=== PATIENT | female | born 1970 | race Caucasian/White ===

== ENCOUNTER → 2016-03-29 | Outpatient (CLI) | payer BC ==
[~2016-03-29] MED LIST: AMLO-110 PO; BIOT1CAP8 PO; CHOL20007 PO; COEN1CAP32 PO; DXY100 PO; ELET40TA PO; HYDR-5688 PO; LACTTAB7 PO; LISI-461 PO; MAGN1CAP4 PO; METO25TA56 PO; NITR-5 PO; NORE1TAB90 PO; OMEG10007 PO; OMEP40CA41 PO; VRPSR180 PO
== END | disposition home or self-care (01) ==
LOC: C.LAB 14:36
PROVIDERS: ATTEND Nurse Practitioner Family
DX: N39.0 Urinary tract infection, site not specified (principal)

== ENCOUNTER → 2016-04-02 | Outpatient (CLI) | payer OTHER, BC ==
--- NOTE | 2016-04-02 15:54 | DIAGNOSTIC IMAGING REPORT ---
LEFT FOOT MIN 3 VIEWS ROUTINE CLINICAL HISTORY: Left foot pain and swelling TRAUMA COMPARISON: None. DISCUSSION: No fractures or dislocations are visualized. IMPRESSION: No fractures or dislocations are visualized. Electronically signed by: Eriberto Crum M.D. 04/02/2016 3:53 PM Dictated Date/Time: 04/02/2016 3:52 PM
== END | disposition home or self-care (01) ==
LOC: C.RAD1850 14:38
PROVIDERS: ATTEND Nurse Practitioner Family
DX: M79.672 Pain in left foot (principal); M79.89 Other specified soft tissue disorders; W19.XXXA Unspecified fall, initial encounter

== ENCOUNTER → 2016-04-05 | Outpatient (CLI) | payer BC ==
--- NOTE | 2016-04-05 16:13 | DIAGNOSTIC IMAGING REPORT ---
CHEST 2 VIEWS ROUTINE CLINICAL HISTORY: R05 cough COMPARISON STUDY: 02/01/2016 FINDINGS: The bones soft tissues and hemidiaphragms are normal. The cardiomediastinal silhouette is normal. The lungs are clear. The pulmonary vasculature is normal. IMPRESSION: Negative chest. Electronically signed by: Keith Hughes M.D. 04/05/2016 4:11 PM Dictated Date/Time: 04/05/2016 4:11 PM
== END | disposition home or self-care (01) ==
LOC: C.RAD 15:40
PROVIDERS: ATTEND Nurse Practitioner Family
DX: R05 Cough (principal)

== ENCOUNTER → 2016-04-19 | Outpatient (CLI) | payer BC ==
[2016-04-19 17:46] LABS: BASO % 0.4 %; BASO ABS # 0.04 K/uL (0-0.2); COMPLETE YES; EOS % 1.5 %; HEMATOCRIT 37.4 % (37-47); IG% 0.2 %; LYMPH % 30.7 %; LYMPH ABS # 2.89 K/uL (1.2-3.4); MEAN CELL VOLUME 93.7 fL (80-100); MEAN CORPUSCULAR HEMOGLOBIN 31.6 pg (25-34); MEAN CORPUSCULAR HGB CONC 33.7 g/dl (32-36); MEAN PLATELET VOLUME 9.8 fL (7.4-10.4); MONO % 6.8 %; NEUT % 60.4 %; PLATELET COUNT 321 K/uL (130-400); RED BLOOD COUNT 3.99 M/uL (4.2-5.4); WHITE BLOOD COUNT 9.42 K/uL (4.8-10.8)
[2016-04-19 18:11] LABS: ALT/SGPT 27 U/L (12-78); AST/SGOT 18 U/L (15-37); BLOOD UREA NITROGEN 12 mg/dl (7-18); BUN/CREATININE RATIO 11.6 (10-20); CALCIUM 8.8 mg/dl (8.5-10.1); CARBON DIOXIDE 24 mmol/L (21-32); CHLORIDE 109 mmol/L (98-107); GLUCOSE 86 mg/dl (70-99); POTASSIUM 3.9 mmol/L (3.5-5.1); SODIUM 143 mmol/L (136-145)
[2016-04-19 18:13] LABS: ALB/GLOB RATIO 0.9 (0.9-2); ALKALINE PHOSPHATASE 51 U/L (45-117)
== END | disposition home or self-care (01) ==
LOC: C.LAB 16:55
PROVIDERS: ATTEND Psychiatry & Neurology Neurology
DX: R51 Headache (principal)

== ENCOUNTER 2016-05-06 15:51 | Emergency (ER) | payer BC ==
[~2016-05-06] VITALS: Ht 162.6 cm; Wt 109.6 kg
[~2016-05-06 15:51] MED LIST changes: -AMLO-110 PO; -LACTTAB7 PO; -METO25TA56 PO; -NITR-5 PO
[2016-05-06 15:56] VITALS: TEMP 36.9; Ht 162.6 cm; Wt 109.6 kg
[2016-05-06] MEDS ORDERED: METO25TA56 PO (16:24)
--- NOTE | 2016-05-06 16:25 | DIAGNOSTIC IMAGING REPORT ---
CHEST ONE VIEW PORTABLE CLINICAL HISTORY: Evaluate Fever/Sepsis dyspnea COMPARISON STUDY: No previous studies for comparison. FINDINGS: The bones soft tissues and hemidiaphragms are normal. The cardiomediastinal silhouette is normal. The lungs are clear. The pulmonary vasculature is normal. IMPRESSION: Negative chest. Electronically signed by: Keith Hughes M.D. 05/06/2016 4:24 PM Dictated Date/Time: 05/06/2016 4:23 PM
[2016-05-06] MEDS ORDERED: NITR-5 PO (16:40)
[2016-05-06] MEDS ORDERED: LACTTAB7 PO (16:41)
[2016-05-06 16:59] LABS: BASO % 0.4 %; BASO ABS # 0.03 K/uL (0-0.2); COMPLETE YES; EOS % 1.2 %; HEMATOCRIT 40.6 % (37-47); IG% 0.3 %; LYMPH % 38.5 %; MEAN CELL VOLUME 91.9 fL (80-100); MEAN CORPUSCULAR HEMOGLOBIN 31.2 pg (25-34); MEAN PLATELET VOLUME 9.8 fL (7.4-10.4); MONO % 7.2 %; NEUT % 52.4 %; PLATELET COUNT 303 K/uL (130-400); RED BLOOD COUNT 4.42 M/uL (4.2-5.4); WHITE BLOOD COUNT 7.54 K/uL (4.8-10.8)
[2016-05-06 17:01] LABS: INR 1.1 (0.9-1.1); PROTHROMBIN TIME (PATIENT) 11.3 SECONDS (9.0-12.0)
[2016-05-06 17:16] LABS: ALT/SGPT 33 U/L (12-78); BLOOD UREA NITROGEN 8 mg/dl (7-18); BUN/CREATININE RATIO 8.4 (10-20); CALCIUM 8.8 mg/dl (8.5-10.1); CARBON DIOXIDE 25 mmol/L (21-32); CHLORIDE 107 mmol/L (98-107); CREATININE 0.95 mg/dl (0.60-1.20); GLUCOSE 75 mg/dl (70-99); POTASSIUM 3.7 mmol/L (3.5-5.1); SODIUM 142 mmol/L (136-145)
[2016-05-06 17:27] LABS: ALKALINE PHOSPHATASE 59 U/L (45-117); AST/SGOT 17 U/L (15-37); CKMB/CK RATIO 0.7 (0-3.0)
[2016-05-06] MEDS ORDERED: AMLO-110 PO (17:44)
--- NOTE | 2016-05-06 17:46 | EMERGENCY ROOM VISIT NOTE ---
History Report prepared by Adonay: Alissa Hidalgo Under the Supervision of: Dr. Leo Milton D.O. 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 The patient states today she has been experiencing arm pain, neck pain, and visual changes were she was seeing rings. She states her eyesight problems have resolved but she is still experiencing chest pain. She states that the last few days she has issues with her blood pressure and states she has not had a diastolic blood pressure under 100 mmHg. The patient states that she changed her blood pressure medication 3 weeks ago and has been monitoring it and it has caused it to be high recently. 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 The patient denies any sob or fevers but states she had a resolved headache a few days ago. 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 Review of Systems See HPI for pertinent positives & negatives. A total of 10 systems reviewed and were otherwise negative. Past Medical & Surgical Medical Problems: (1) Epilepsy (2) Hypothyroidism Nos (3) Personal History, Urinary (Tract) Infection Surgical Problems: (1) H/O tubal ligation Family History Cancer Diabetes mellitus Heart disease Hypertension Lung disease Seizures Social History Smoking Status: Never Smoker Alcohol Use: none Marital Status: Housing Status: lives with family Occupation Status: employed Current/Historical Medications Scheduled Amlodipine (Norvasc), 5 MG PO DAILY Biotin (Biotin), 1 CAP PO DAILY Cholecalciferol (Vitamin D3), 4,000 UNITS PO DAILY Coenzyme Q10 (Ubidecarenone) (Coq-10), 400 MG PO DAILY Fish Oil (Cascade-3), 1 CAP PO DAILY Lactobacillus (Acidophilus), 1 TAB PO DAILY Magnesium Oxide (Magnesium), 500 MG PO DAILY Metoprolol Tartrate (Lopressor) (Lopressor), 25 MG PO DAILY Nitrofurantoin Monohyd Macrocr (Macrobid), 100 MG PO DAILY Norethindrone Acetate (Norethindrone Acetate), 5 MG PO DAILY Omeprazole (Prilosec), 40 MG PO DAILY Scheduled PRN Eletriptan Hydrobromide (Relpax), 40 MG PO DAILY PRN for Headache Allergies Coded Allergies: Cephalexin (Verified Allergy, Severe, throat swelling, 01/28/16) Clindamycin (Verified Allergy, Severe, throat swelled shut, 01/28/16) Aspirin (Verified Allergy, Mild, HIVES, 02/01/16) PER PATIENT NO REACTION TO IBUPROFEN Penicillins (Verified Allergy, Mild, hives, 01/28/16) Aspartame (Verified Allergy, Unknown, HIVES, 01/31/16) Allergic to artificial sweeteners Carbamazepine (Verified Allergy, Unknown, NONE, 01/28/16) Ciprofloxacin (Verified Allergy, Unknown, ., 01/28/16) Flu Virus Vaccine (Verified Allergy, Unknown, passed out for 3 hrs, ) Phenytoin (Verified Allergy, Unknown, ?, 01/28/16) Saccharin (Verified Allergy, Unknown, HIVES, 01/31/16) Sulfa Antibiotics (Verified Allergy, Unknown, RASH, 01/29/16) Physical Exam Vital Signs Date Time Temp Pulse Resp B/P Pulse Ox O2 Delivery O2 Flow Rate FiO2 05/06/16 17:07 66 05/06/16 15:56 36.9 75 18 187/109 97 Room Air Physical Exam CONSTITUTIONAL/VITAL SIGNS: Reviewed / noted above. GENERAL: Non-toxic in appearance. INTEGUMENTARY: Warm, dry, and [place]. HEAD: Normocephalic. EYES: without scleral icterus or trauma. ENT/OROPHARYNX: clear and moist. LYMPHADENOPATHY/NECK: Is supple without lymphadenopathy or meningismus. RESPIRATORY: Lungs clear and equal. CARDIOVASCULAR: Regular rate and rhythm. GI/ABDOMEN: Soft and nontender. No organomegaly or pulsatile mass. No rebound or guarding. Normal bowel sounds. EXTREMITIES: Warm and well perfused. BACK: No CVA tenderness. NEUROLOGICAL: Intact without focal deficits. PSYCHIATRIC: normal affect. MUSCULOSKELETAL: Normally developed with good muscle tone. Medical Decision & Procedures ER Provider Diagnostic Interpretation: X ray results and stated below per my interpretation and radiology interpretation. CHEST ONE VIEW PORTABLE CLINICAL HISTORY: Evaluate Fever/Sepsis dyspnea COMPARISON STUDY: No previous studies for comparison. FINDINGS: The bones soft tissues and hemidiaphragms are normal. The cardiomediastinal silhouette is normal. The lungs are clear. The pulmonary vasculature is normal. IMPRESSION: Negative chest. Electronically signed by: Keith Hughes M.D. 05/06/2016 4:24 PM Dictated Date/Time: 05/06/2016 4:23 PM Laboratory Results 05/06/16 16:30 Red Blood Count 4.42, Mean Corpuscular Volume 91.9, Mean Corpuscular Hemoglobin 31.2, Mean Corpuscular Hemoglobin Concent 34.0, Mean Platelet Volume 9.8, Neutrophils (%) (Auto) 52.4, Lymphocytes (%) (Auto) 38.5, Monocytes (%) (Auto) 7.2, Eosinophils (%) (Auto) 1.2, Basophils (%) (Auto) 0.4, Neutrophils # (Auto) 3.96, Lymphocytes # (Auto) 2.90, Monocytes # (Auto) 0.54, Eosinophils # (Auto) 0.09, Basophils # (Auto) 0.03 05/06/16 16:30 Test 05/06/16 16:30 White Blood Count 7.54 K/uL (4.8-10.8) Red Blood Count 4.42 M/uL (4.2-5.4) Hemoglobin 13.8 g/dL (12.0-16.0) Hematocrit 40.6 % (37-47) Mean Corpuscular Volume 91.9 fL (80-100) Mean Corpuscular Hemoglobin 31.2 pg (25-34) Mean Corpuscular Hemoglobin Concent 34.0 g/dl (32-36) Platelet Count 303 K/uL (130-400) Mean Platelet Volume 9.8 fL (7.4-10.4) Neutrophils (%) (Auto) 52.4 % Lymphocytes (%) (Auto) 38.5 % Monocytes (%) (Auto) 7.2 % Eosinophils (%) (Auto) 1.2 % Basophils (%) (Auto) 0.4 % Neutrophils # (Auto) 3.96 K/uL (1.4-6.5) Lymphocytes # (Auto) 2.90 K/uL (1.2-3.4) Monocytes # (Auto) 0.54 K/uL (0.11-0.59) Eosinophils # (Auto) 0.09 K/uL (0-0.5) Basophils # (Auto) 0.03 K/uL (0-0.2) RDW Standard Deviation 43.4 fL (36.4-46.3) RDW Coefficient of Variation 12.9 % (11.5-14.5) Immature Granulocyte % (Auto) 0.3 % Immature Granulocyte # (Auto) 0.02 K/uL (0.00-0.02) Prothrombin Time 11.3 SECONDS (9.0-12.0) Prothromb Time International Ratio 1.1 (0.9-1.1) Activated Partial Thromboplast Time 24.9 SECONDS (21.0-31.0) Partial Thromboplastin Ratio 1.0 Anion Gap 10.0 mmol/L (3-11) Est Creatinine Clear Calc Drug Dose 90.5 ml/min Estimated GFR () 83.8 Estimated GFR (Non- 72.3 BUN/Creatinine Ratio 8.4 (10-20) Calcium Level 8.8 mg/dl (8.5-10.1) Total Bilirubin 0.3 mg/dl (0.2-1) Direct Bilirubin < 0.1 mg/dl (0-0.2) Aspartate Amino Transf (AST/SGOT) 17 U/L (15-37) Alanine Aminotransferase (ALT/SGPT) 33 U/L (12-78) Alkaline Phosphatase 59 U/L (45-117) Total Creatine Kinase 112 U/L (26-192) Creatine Kinase MB 0.8 ng/ml (0.5-3.6) Creatine Kinase MB Ratio 0.7 (0-3.0) Troponin I < 0.015 ng/ml (0-0.045) Total Protein 7.9 gm/dl (6.4-8.2) Albumin 3.9 gm/dl (3.4-5.0) Lipase 151 U/L (73-393) Thyroid Stimulating Hormone (TSH) 1.320 uIu/ml (0.300-4.500) Laboratory results as stated above per my review. ECG Indication: chest pain Rate (beats per minute): 71 Rhythm: normal sinus Findings: no acute ischemic change, no ectopy ED Course 1606: Previous medical records were reviewed. The patient was evaluated in room B7. A complete history and physical examination was performed. Her blood pressure was 167/119 mmHg during examination. 174: On reevaluation, the patient is hemodynamically stable. I discussed the results and findings with the patient. She verbalized agreement of the treatment plan. The patient was discharged home. Medical Decision the differential was considered includes acute myocardial infarction, acute coronary syndrome, myocarditis, pericarditis, pericardial effusions /tamponad, esophageal perforation, thoracic aortic dissection, pulmonary embolism, pneumonia, pneumothorax, pancreatitis, shingles, acute cholecystitis, perforated abdominal viscus. This is a 45-year-old female who presents to the ED with a chief complaint of chest pain and hypertension. The patient states that she had a blood pressure this morning of something over greater than 100 diastolic. She also had a little bit of chest pain for the past 4 hours as well as pain in her neck. She states that she had some rings in her vision earlier in the day but this has improved. The patient has been on a number of blood pressure medications in the past. She has been on verapamil but her blood pressure went too low. She has been on lisinopril but she developed a cough. She most recently has been on the beta dacia that she is currently on. Her physical exam was normal. Her vital signs reveal hypertension with a blood pressure 187/109. Last blood pressure was 164/107. Blood work reveals normal CBC. Normal TSH. Normal troponin. Chest x-ray was negative for acute disease. EKG shows a normal sinus rhythm without ectopy or acute injury. The patient was told the results the test. She is felt to be stable for discharge. After discussing this with the ED pharmacist, the patient will be started on amlodipine 5 mg daily. She will continue her metoprolol. Impression Primary Impression: Hypertension Scribe Attestation The scribe's documentation has been prepared under my direction and personally reviewed by me in its entirety. I confirm that the note above accurately reflects all work, treatment, procedures, and medical decision making performed by me. Departure Information Dispostion Home / Self-Care Prescriptions Amlodipine (Norvasc) 5 Mg Tab 5 MG PO DAILY, #30 TAB Prov: Leo Milton D.O. 05/06/16 Referrals Jose Luis Fraga D.O. (PCP) Forms HOME CARE DOCUMENTATION FORM, IMPORTANT VISIT INFORMATION Patient Instructions Hypertension Veto, My [facility] Additional Instructions Continue your metoprolol. Amlodipine 5 mg daily. See your doctor in 2-3 days for recheck. Follow-up with your doctor for further care and evaluation in 1-3 days. Return to the emergency department for worsening or new symptoms or any concerns. You have been examined and treated today on an emergency basis only. This is not a substitute for, or an effort to provide, complete comprehensive medical care. It is impossible to recognize and treat all injuries or illnesses in a single emergency department visit. It is therefore important that you follow up closely with your doctor. Call as soon as possible for an appointment.
[2016-05-06 17:54] VITALS: BP 164/107; PULSE 70; O2SAT 96
[2016-05-06] MEDS ORDERED: AMLODIPINE BESYLATE 5 MG TAB PO ONE (18:00)
== END 2016-05-06 18:09 | disposition home or self-care (01) ==
LOC: C.EDB 15:53
DX: I10 Essential (primary) hypertension (principal); E03.9 Hypothyroidism, unspecified; R51 Headache; M54.2 Cervicalgia; Z86.73 Personal history of transient ischemic attack (TIA), and cerebral infarction without residual deficits; Z79.899 Other long term (current) drug therapy

== ENCOUNTER → 2017-01-24 | Outpatient (CLI) | payer BC ==
[~2017-01-24] MED LIST changes: -DXY100 PO; -HYDR-5688 PO; +LACTTAB7 PO; -LISI-461 PO; +METO25TA56 PO; +NITR-5 PO; -VRPSR180 PO
--- NOTE | 2017-01-27 07:49 | MAMMOGRAPHY REPORT ---
BILATERAL DIGITAL SCREENING MAMMOGRAM TOMOSYNTHESIS WITH CAD: 01/24/2017 CLINICAL HISTORY: Routine screening. Patient has no complaints. TECHNIQUE: Breast tomosynthesis in addition to standard 2D mammography was performed. Current study was also evaluated with a Computer Aided Detection (CAD) system. COMPARISON: Comparison is made to exams dated: 11/13/2015 mammogram, 11/09/2014 mammogram, 09/27/2013 ma mmogram, 09/23/2012 mammogram, 08/15/2011 mammogram, and 02/04/2011 mammogram - [facility]. BREAST COMPOSITION: The tissue of both breasts is heterogeneously dense, which may obscure small mas ses. FINDINGS: There is a stable biopsy clip in the left breast. No new suspicious mass, architectural d istortion or cluster of microcalcifications is seen. IMPRESSION: ACR BI-RADS CATEGORY 1: NEGATIVE There is no mammographic evidence of malignancy. A 1 year screening mammogram is recommended. The pa tient will receive written notification of the results. Approximately 10% of breast cancers are not detected with mammography. A negative mammographic report should not delay biopsy if a clinically suggestive mass is present. Lakisha Saleh M.D. ay/:01/25/2017 08:37:15 Unhairing Inspector: Zoey GARCIA(R)(M), [facility] letter sent: Normal 1/2 BI-RADS Code: ACR BI-RADS Category 1: Negative
== END | disposition home or self-care (01) ==
LOC: C.MAMM 10:08
PROVIDERS: ATTEND Obstetrics & Gynecology
DX: Z12.31 Encounter for screening mammogram for malignant neoplasm of breast (principal)

== ENCOUNTER → 2017-07-12 | Outpatient (CLI) | payer BC | END | disposition home or self-care (01) | LOC: C.LAB 10:17 | PROVIDERS: ATTEND Internal Medicine | DX: E04.9 Nontoxic goiter, unspecified (principal) ==

== ENCOUNTER 2018-06-28 04:38 | Observation (INO) ==
[2018-06-28] MEDS ORDERED: fentaNYL citrate 100 MCG/2 ML VIAL IV ONE ×2 (04:53→06:14)
[2018-06-28] MEDS ORDERED: ONDANSETRON INJ 2 MG/ML 2 ML VIAL IV STA (04:53)
[2018-06-28 05:05] LABS: Basophils # (auto) 0.03 K/uL (0-0.2); Basophils % (auto) 0.4 %; Eosinophils # (auto) 0.15 K/uL (0-0.5); Eosinophils % (auto) 1.9 %; Hematocrit (blood only) 40.8 % (37-47); Immature Granulocytes # (auto) 0.02 K/uL (0.00-0.02); Immature Granulocytes % (auto) 0.3 %; Lymphocytes # (auto) 3.37 K/uL (1.2-3.4); Lymphocytes % (auto) 43.3 %; Mean Corpuscular Hgb Conc 34.3 g/dL (32-36); Mean Corpuscular Volume 95.3 fL (80-100); Mean Platelet Volume 9.7 fL (7.4-10.4); Monocytes # (auto) 0.76 K/uL (0.11-0.59); Monocytes % (auto) 9.8 %; Neutrophils # (auto) 3.45 K/uL (1.4-6.5); Neutrophils % (auto) 44.3 %; Platelet Count 265 K/uL (130-400); RDW Coefficient of Variation 12.8 % (11.5-14.5); RDW Standard Deviation 44.5 fL (36.4-46.3); Red Blood Count 4.28 M/uL (4.2-5.4); White Blood Count 7.78 K/uL (4.8-10.8)
[2018-06-28 05:20] LABS: Alanine Aminotransferase 29 U/L (12-78); Albumin Level 3.7 gm/dl (3.4-5.0); Aspartate Aminotransferase 25 U/L (15-37); BUN Creatinine Ratio 16.4 (10-20); Blood Urea Nitrogen 17 mg/dl (7-18); Calcium 8.9 mg/dl (8.5-10.1); Carbon Dioxide 28 mmol/L (21-32); Chloride 107 mmol/L (98-107); Creatinine Clr Calc Pharmacy 79.7 ml/min; Est GFR (African American) 72.7; Est GFR (Non-African American) 62.8; Glucose 85 mg/dl (70-99); Potassium 4.4 mmol/L (3.5-5.1); Sodium 138 mmol/L (136-145)
[2018-06-28 05:25] LABS: Albumin Globulin Ratio 0.9 (0.9-2); Alkaline Phosphatase 59 U/L (45-117); Bilirubin,Total 0.5 mg/dl (0.2-1); Total Protein 7.7 gm/dl (6.4-8.2); Troponin I < 0.015 ng/ml (0-0.045)
--- NOTE | 2018-06-28 06:13 | XRay Report ---
XR chest 1V portable HISTORY: 48 years-old Female Chest Pain acute atypical chest pain COMPARISON: Chest radiograph 05/06/2016 TECHNIQUE: Portable AP view of the chest FINDINGS: Cardiomediastinal and hilar silhouettes are within normal limits. There is no pneumothorax, pleural e ffusion, focal airspace consolidation or overt pulmonary edema. Degenerative changes of the shoulders . Bones of the chest appear grossly intact. IMPRESSION: No acute process. The above report was generated using voice recognition software. It may contain grammatical, syntax o r spelling errors. Electronically signed by: Ranjit Proctor M.D. 06/28/2018 6:12 AM
--- NOTE | 2018-06-28 08:14 | History & Physical Report ---
Date of Service June 28, 2018 Assessment & Plan (1) Substernal chest pain: - Admit to tele for observation for r/o - Trend cardiac biomarkers, initial set was negative - EKG reviewed as above -negative for acute ischemia -CXR reviewed and is negative - Check 2 D echo - If negative enzymes can consider a stress test tomorrow morning. - PT/OT consulted - Strong family hx is concerning for possible cardiac event - Consult [facility] as pt follows with Dr. Irene as outpatient a few years ago. (2) HTN (hypertension): - Cont antihypertensives including losartan 50 mg daily (3) Epilepsy: -History of such (4) Hx of completed stroke: -History of such in 1979 when age 10 and because 3 years of paralysis per patient report. 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 (5) History of paralysis: -As above (6) HLD (hyperlipidemia): -Continue CoQ10 (7) Bladder spasm: -Patient was recently started on oxybutynin 10 mg daily last , has been taking this. Patient follows with [facility] urology as outpatient. (8) DVT prophylaxis: -Suzanna Mcconnell subcu History of Present Illness Primary Care Provider: Jose Luis Fraga DO This is a 48-year-old female with PMHx of history of HTN, HLD, bladder spasm, epilepsy, stroke age 10 in 1979 causing paralysis for 3 years, with residual right-sided lip droop as well as deafness in the right ear,'s S/P cochlear impl ant who presents with acute onset at 0300 of crushing substernal chest pain. The patient noticed that she was extremely nauseous along with the pain and proceeded to go to the bathroom however could not vomit. She felt short of breath and was slightly dizzy at this point in time. She reports the pain has been continuous, not waxing & waning and feels heavy. Yesterday she was golfing however this is not out of the normal for her. She denies ever experiencing this type of chest pain before. Patient also notes that she recently started new medication of oxybutynin last for bladder spasms. FHX: The patient has strong family history for heart disease: Patient's mother at age 53 of a massive heart attack 15 years ago, twin sister had heart attack at age 40, older sister with history of HTN, father with history of HTN. SHx: Patient does not smoke nor drink alcohol. Allergies Allergy/AdvReac Type Severity Reaction Status Date / Time cephalexin Allergy Severe throat Verified 06/28/18 05:13 swelling clindamycin Allergy Severe throat Verified 06/28/18 05:13 swelled shut aspirin Allergy Mild HIVES Verified 06/28/18 05:13 Penicillins Allergy Mild hives Verified 06/28/18 05:13 aspartame Allergy Unknown HIVES Verified 06/28/18 05:13 carbamazepine Allergy Unknown NONE Verified 06/28/18 05:13 Cipro Allergy Unknown . Verified 01/28/16 19:38 ciprofloxacin Allergy Unknown . Verified 06/28/18 05:13 phenytoin Allergy Unknown ? Verified 06/28/18 05:13 saccharin Allergy Unknown HIVES Verified 06/28/18 05:13 Sulfa (Sulfonamide Allergy Unknown RASH Verified 06/28/18 05:13 Antibiotics) Flu Virus Vaccine Allergy Unknown passed out Uncoded 01/28/16 19:38 for 3 hrs Home Medications Home Medications Medication Instructions Recorded Confirmed Type [place]-3 1 cap PO DAILY 06/28/18 06/28/18 History albuterol sulfate 2 puff INHALATION QID PRN 06/28/18 06/28/18 History biotin 1,000 mcg PO DAILY 06/28/18 06/28/18 History cetirizine-pseudoephedrine 1 tab PO Q12H PRN 06/28/18 06/28/18 History [Zyrtec-D] cholecalciferol (vitamin D3) 5,000 unit PO DAILY 06/28/18 06/28/18 History [Vitamin D3] coQ10 (ubiquinol) 100 mg PO DIRECTED 06/28/18 06/28/18 History diclofenac sodium 1 applic TOPICAL DIRECTED 06/28/18 06/28/18 History eletriptan [Relpax] 40 mg PO DAILY 06/28/18 06/28/18 History ibuprofen 800 mg PO DIRECTED PRN 06/28/18 06/28/18 History losartan 50 mg PO DAILY 06/28/18 06/28/18 History magnesium oxide 500 mg PO DAILY 06/28/18 06/28/18 History nitrofurantoin monohyd/m-cryst 100 mg PO BID 06/28/18 06/28/18 History norethindrone acetate 5 mg PO DAILY 06/28/18 06/28/18 History omeprazole 40 mg PO DAILY 06/28/18 06/28/18 History Past Med/Surg History Medical History Bladder spasm HLD (hyperlipidemia) History of paralysis Hx of completed stroke Substernal chest pain (Acute) HTN (hypertension) Surgical History H/O tubal ligation (Resolved) Social History Preferred Language: Azeri Communication Ability: Effective Prepress Stripper Required: No Beliefs That Will Affect Care: None marital status: Current Living Situation: Spouse Other Information That Helps Us Care for You: No Feels Safe at Home: Yes Safety Concerns: Feels Safe At This Time Smoking Status: Never smoker Do You Dip or Chew Tobacco: No Second Hand Exposure: No Tobacco Cessation Education Requested by Patient: No Hx Alcohol Use: Yes Hx Substance Use: No Review of Systems Review of Systems: Constitutional: No fever, sweats or chills Eyes: No diplopia, no worsening or blurred vision ENT: normal hearing, no trouble swallowing Respiratory: No cough, sputum, as per HPI Cardiovascular: As per HPI Abdomen: No pain, +nausea as per HPI, no vomiting, diarrhea or constipation Musculoskeletal: No joint pain, calf pain, swelling Neurologic: No weakness, numbness/tingling, or balance problems Psychiatric: No anxiety or depression Skin: No rash or itch Physical Exam Physical Exam: General: awake, alert, no apparent distress Head: Normocephalic, atraumatic ENT: PERRL, EOMI, no pharyngeal exudate, mucous membranes moist Chest: Pain not reproducible upon palpation, clear to auscultation, on room air, no adventitious breath sounds Cardiac: Regular rate and rhythm, no murmur, no JVD, normal peripheral pulses, good capillary refill Abdominal: NABS x 4 quadrants, soft, nontender to palpation, no rebound, guarding or tenderness Extremities: Normal inspection, no peripheral edema or erythema, calfs nontender to palpation Psych: Normal mood and affect Neuro: AAO x 3, strength intact bilaterally and related 5/5, no motor deficits, speech is clear, no peripheral sensory deficits Results & Data Vital Signs (Past 12 Hours) Vital Signs Temp Pulse Pulse Resp BP BP Pulse Ox 06/28/18 07:36 89 16 128/92 97 06/28/18 06:17 77 18 134/81 97 06/28/18 05:47 59 L 18 127/85 93 06/28/18 04:44 36.4 C L 71 16 150/93 H 97 Diagnostic Findings XR chest 1V portable HISTORY: 48 years-old Female Chest Pain acute atypical chest pain COMPARISON: Chest radiograph 05/06/2016 TECHNIQUE: Portable AP view of the chest FINDINGS: Cardiomediastinal and hilar silhouettes are within normal limits. There is no pneumothorax, pleural effusion, focal airspace consolidation or overt pulmonary edema. Degenerative changes of the shoulders. Bones of the chest appear grossly intact. IMPRESSION: No acute process. ECG Additional Comments: 28-JUN-2018 04:44:19 [facility]-EDSTAT ROUTINE RETRIEVAL Poor data quality, interpretation may be adversely affected Normal sinus rhythm with sinus arrhythmia Normal ECG When compared with ECG of 06-MAY-2016 15:56, QT has lengthened 25mm/s 10mm/mV 150Hz 9.0.8 12SL 241 SARA: 15 Referred by: REFERRED SELF Unconfirmed Vent. rate 79 BPM NH interval 178 ms QRS duration 90 ms QT/QTc 408/467 ms P-R-T axes 50 75 61 Code Status & VTE Plan Code Status Full code Supervising Physician Co-Signing Physician Notes During my face to face encounter with patient, I performed a history and physical examination. This was done without the presence of the APC. I answered all of the patient questions and concerns during this encounter. I agree with above note. Patient is a 48 yo female with chest pain. Cardio does not feel patient warrents stress test. However, she is now complaining of left sided chest pain that radiates to the ba ck. Will order a CTA of chest. Will keep patient overnight for observation.
--- NOTE | 2018-06-28 08:29 | Emergency Department Note ---
Entered by Bunny Acosta acting as a scribe for Valery Melara DO History of Present Illness General Chief complaint: Chest Pain Stated complaint: chest pain Time Seen by Provider: 06/28/18 04:42 Source: patient and EMS Limitations: no limitations History of Present Illness Provider complaint: Chest Pain Onset (ago): hour(s) Location: chest Radiation: extremity (right shoulder/arm) Pain Consistency: + constant Maximum Pain Intensity: 5 Current Pain Intensity: 6 Quality: + other ("elephant sitting on my chest") Relieved By: + medication (Nitro) Associated symptoms: + diaphoresis and + shortness of breath Treatments prior to arrival: other (Nitro) The patient is a 48 year old female who presents to the Emergency Room with complaints of constant chest pain that woke her up from sleep shortly prior to arrival. The patient states that she was woken from sleep this morning by centralized chest pain. She describes the pain as a heaviness, or as "an el ephant sitting on my chest" per EMS. The patient adds that the pain does radiate into her right shoulder/arm and was a 10/10 in severity when she first woke up. She also complains of shortness of breath, nausea, and diaphoresis. The patient attempted to use the restroom, but laid on the floor after becoming nauseous. EMS administered 3 nitroglycerin tablets, which improved her pain to a 6/10 in severity. The patient states that the heaviness is present currently. She has had a stress test in the past secondary to hypertensive crisis, her hypertension is treated by Losartan. The patient has no personal cardiac history, but notes that her mother of ACS at 53 years of age. Home Medications Home Medications Medication Instructions Recorded Confirmed Type albuterol sulfate 2 puff INHALATION QID PRN 06/28/18 06/28/18 History biotin 1,000 mcg PO DAILY 06/28/18 06/28/18 History cetirizine-pseudoephedrine 1 tab PO Q12H PRN 06/28/18 06/28/18 History [Zyrtec-D] cholecalciferol (vitamin D3) 5,000 unit PO DAILY 06/28/18 06/28/18 History [Vitamin D3] coQ10 (ubiquinol) 100 mg PO DIRECTED 06/28/18 06/28/18 History diclofenac sodium 1 applic TOPICAL DIRECTED 06/28/18 06/28/18 History eletriptan [Relpax] 40 mg PO DAILY 06/28/18 06/28/18 History ibuprofen 800 mg PO DIRECTED PRN 06/28/18 06/28/18 History losartan 50 mg PO DAILY 06/28/18 06/28/18 History magnesium oxide 500 mg PO DAILY 06/28/18 06/28/18 History nitrofurantoin monohyd/m-cryst 100 mg PO BID 06/28/18 06/28/18 History norethindrone acetate 5 mg PO DAILY 06/28/18 06/28/18 History omega 8-ypc-mxo-fish oil [[place]-3] 1 cap PO DAILY 06/28/18 06/28/18 History omeprazole 40 mg PO DAILY 06/28/18 06/28/18 History oxybutynin chloride 10 mg PO DAILY 06/28/18 06/28/18 History Allergies Allergy/AdvReac Type Severity Reaction Status Date / Time cephalexin Allergy Severe throat Verified 06/28/18 05:13 swelling clindamycin Allergy Severe throat Verified 06/28/18 05:13 swelled shut aspirin Allergy Mild HIVES Verified 06/28/18 05:13 Penicillins Allergy Mild hives Verified 06/28/18 05:13 aspartame Allergy Unknown HIVES Verified 06/28/18 05:13 carbamazepine Allergy Unknown NONE Verified 06/28/18 05:13 Cipro Allergy Unknown . Verified 01/28/16 19:38 ciprofloxacin Allergy Unknown . Verified 06/28/18 05:13 phenytoin Allergy Unknown ? Verified 06/28/18 05:13 saccharin Allergy Unknown HIVES Verified 06/28/18 05:13 Sulfa (Sulfonamide Allergy Unknown RASH Verified 06/28/18 05:13 Antibiotics) Flu Virus Vaccine Allergy Unknown passed out Uncoded 01/28/16 19:38 for 3 hrs Past Med/Surg History Medical History Bladder spasm HLD (hyperlipidemia) History of paralysis Hx of completed stroke Substernal chest pain (Acute) HTN (hypertension) Surgical History H/O tubal ligation (Resolved) Social History Preferred Language: Romanian Communication Ability: Effective [employer] Required: No Beliefs That Will Affect Care: None marital status: Current Living Situation: Spouse Other Information That Helps Us Care for You: No Feels Safe at Home: Yes Safety Concerns: Feels Safe At This Time Smoking Status: Never smoker Do You Dip or Chew Tobacco: No Second Hand Exposure: No Tobacco Cessation Education Requested by Patient: No Hx Alcohol Use: Yes Hx Substance Use: No Review of Systems See HPI for pertinent positives & negatives. and A total of 10 systems reviewed and were otherwise negative Physical Exam Vital Signs Vital Signs - 24 hr 06/28/18 04:44 06/28/18 05:47 06/28/18 06:17 Temperature 36.4 C L Temperature Source Oral Sepsis Action Taken by Nursing No Action Required Pulse Rate 71 Pulse Rate [Finger] 59 L 77 Respiratory Rate 16 18 18 Respiratory Effort / Characteristics Non-Labored Spontaneous Respiratory Depth Normal Blood Pressure 150/93 H Blood Pressure [Right Arm] 127/85 134/81 Blood Pressure Mean 112 Blood Pressure Mean [Right Arm] 99 98 Blood Pressure Position [Right Arm] Pulse Oximetry 97 93 97 Oxygen Delivery Method Room Air Room Air Room Air 06/28/18 07:36 06/28/18 08:50 06/28/18 09:28 Temperature Temperature Source Sepsis Action Taken by Nursing Pulse Rate 77 Pulse Rate [Finger] 89 82 Respiratory Rate 16 18 16 Respiratory Effort / Characteristics Respiratory Depth Blood Pressure 146/89 H Blood Pressure [Right Arm] 128/92 160/77 H Blood Pressure Mean Blood Pressure Mean [Right Arm] 104 104 Blood Pressure Position [Right Arm] Pulse Oximetry 97 97 96 Oxygen Delivery Method Room Air Room Air Room Air 06/28/18 10:15 06/28/18 10:21 06/28/18 15:46 Temperature 37 C 37.1 C Temperature Source Oral Oral Sepsis Action Taken by Nursing Pulse Rate 61 Pulse Rate [Finger] 64 70 Respiratory Rate 16 20 Respiratory Effort / Characteristics Respiratory Depth Blood Pressure Blood Pressure [Right Arm] 130/83 135/84 Blood Pressure Mean Blood Pressure Mean [Right Arm] 98 101 Blood Pressure Position [Right Arm] Lying Lying Pulse Oximetry 97 97 Oxygen Delivery Method Room Air Room Air 06/28/18 15:47 06/28/18 17:40 06/28/18 17:46 Temperature Temperature Source Sepsis Action Taken by Nursing Pulse Rate 66 Pulse Rate [Finger] 79 89 Respiratory Rate Respiratory Effort / Characteristics Respiratory Depth Blood Pressure Blood Pressure [Right Arm] 135/82 142/75 H Blood Pressure Mean Blood Pressure Mean [Right Arm] 99 97 Blood Pressure Position [Right Arm] Pulse Oximetry Oxygen Delivery Method 06/28/18 18:00 06/28/18 19:42 Temperature 36.9 C Temperature Source Oral Sepsis Action Taken by Nursing Pulse Rate Pulse Rate [Finger] 86 74 Respiratory Rate 18 Respiratory Effort / Characteristics Respiratory Depth Normal Blood Pressure Blood Pressure [Right Arm] 131/84 130/81 Blood Pressure Mean Blood Pressure Mean [Right Arm] 99 97 Blood Pressure Position [Right Arm] Sitting Pulse Oximetry 97 98 Oxygen Delivery Method Room Air Room Air HEENT: Head - normocephalic and atraumatic Pupils are equal, round, and reactive to light. Extraocular eye muscles are intact, and sclera are anicteric. Nose - moist nasal mucosa without discharge. Mouth - moist buccal mucosa. Oropharynx is nonerythematous and there is no tonsillar exudate or edema noted. Neck: Supple; no JVD, nuchal rigidity, cervical lymphadenopathy, or auscultated bruits. Heart: Regular rate and rhythm. There is a normal S1 and S2 with no murmurs, clicks, or gallops appreciated. Lungs: Clear to auscultation bilaterally with no wheezes, rales, or rhonchi. Abdomen: Soft, completely nontender, nondistended, with good bowel sounds. There are no palpable pulsatile masses or hepatosplenomegaly. There is no guarding, rigidity, or rebound noted. Extremities: No evidence of cyanosis, clubbing, or edema. There are easily palpable peripheral pulses. Skin: warm and dry with good turgor and no rashes. Neuro: The patient has facial droop which is chronic for her. Neurological exam was otherwise nonfocal. Course 0046: The patient was evaluated in room B9, and a complete history and physical examination were performed. Above. A twelve-lead EKG was obtained as described above. She was observed on the registered nurse cardiac and pulse oximeter. She had a portable chest x-ray as described above. 0501: Patient given Fentanyl Citrate (Fentanyl Citrate) 100 mcg IV, Ondansetron HCl (Zofran) 4 mg IV 0606: I updated the patient. She states that she had complete relief of her pain with Fentanyl. The pain is coming back now. Vitals are stable, I will order another dosage of Fentanyl 0618: Patient given Fentanyl Citrate (Fentanyl Citrate) 50 mcg IV 0649: I updated the patient. 0734: I reviewed the patient's case with Dr. Julianne West Hospitalist. He will evaluate the patient for further management. Administered Medications Acetaminophen (Tylenol) 650 mg PO Q4H PRN PRN Reason: Moderate Pain Stop: 07/28/18 10:12 Last Admin: 06/28/18 12:26 Dose: 650 mg Documented by: [id number] Enoxaparin Sodium (Lovenox) 40 mg SQ Q24H SANIYA Stop: 07/28/18 13:59 Last Admin: 06/28/18 13:37 Dose: 40 mg Documented by: [id number] Ioversol (Optiray 320 125ml) 119 ml IV ONCE PRN PRN Reason: Interaction Checking Stop: 07/02/18 18:35 Last Admin: 06/28/18 18:36 Dose: 119 ml Documented by: [id number] Losartan Potassium (Cozaar) 50 mg PO DAILY SANIYA Stop: 07/28/18 10:12 Last Admin: 06/28/18 12:20 Dose: 50 mg Documented by: [id number] Magnesium Oxide (Mag-Ox) 400 mg PO DAILY SANIYA Stop: 07/28/18 10:12 Last Admin: 06/28/18 12:21 Dose: 400 mg Documented by: [id number] Miscellaneous (Order Awaiting Action) 1 ea N/A QS SANIYA Stop: 07/28/18 15:59 Last Admin: 06/28/18 15:44 Dose: Not Given Documented by: [id number] Miscellaneous (Order Awaiting Action) 1 ea N/A QS SANIYA Stop: 07/28/18 15:59 Last Admin: 06/28/18 15:44 Dose: Not Given Documented by: [id number] Morphine Sulfate (Morphine Sulfate) 1 mg IV Q4H PRN PRN Reason: Pain Stop: 07/12/18 10:12 Last Admin: 06/28/18 17:50 Dose: 1 mg Documented by: [id number] Nitroglycerin (Nitrostat) 0.4 mg SL PRN PRN PRN Reason: Chest Pain Stop: 07/28/18 10:12 Last Admin: 06/28/18 17:42 Dose: 0.4 mg Documented by: [id number] Norethindrone (Aygestin) 5 mg PO DAILY SANIYA Stop: 07/28/18 10:12 Last Admin: 06/28/18 12:20 Dose: Not Given Documented by: [id number] Oxybutynin Chloride (Ditropan Xl) 10 mg PO DAILY SANIYA Stop: 07/28/18 10:12 Last Admin: 06/28/18 12:20 Dose: 10 mg Documented by: [id number] Pantoprazole Sodium (Protonix) 40 mg PO DAILY SANIYA Stop: 07/28/18 10:44 Last Admin: 06/28/18 12:22 Dose: 40 mg Documented by: [id number] Vitamin D (Vitamin D3) 5,000 units PO DAILY SANIYA Stop: 07/28/18 10:12 Last Admin: 06/28/18 12:22 Dose: 5,000 units Documented by: [id number] Discontinued Medications Fentanyl Citrate (Fentanyl Citrate) 100 mcg IV NOW ONE Stop: 06/28/18 04:54 Last Admin: 06/28/18 05:01 Dose: 100 mcg Documented by: [id number] Fentanyl Citrate (Fentanyl Citrate) 50 mcg IV NOW ONE Stop: 06/28/18 06:15 Last Admin: 06/28/18 06:18 Dose: 50 mcg Documented by: [id number] Ondansetron HCl (Zofran) 4 mg IV NOW STA Stop: 06/28/18 04:54 Last Admin: 06/28/18 05:01 Dose: 4 mg Documented by: [id number] Medical Decision Making Differential Diagnosis Differential Diagnosis includes: Acute coronary syndrome, GERD, medication side effects, and aortic dissection. Medical Records Attestation: I reviewed the patient's medical records. Home Medications Current Medication List: was personally reviewed by me Laboratory Data Attestation: I reviewed the patient's lab results. Result diagrams: 06/28/18 04:54 06/28/18 04:54 Lab Results 06/28/18 06/28/18 06/28/18 Range/Units 04:54 04:54 10:49 WBC 7.78 (4.8-10.8) K/uL RBC 4.28 (4.2-5.4) M/uL Hgb 14.0 (12.0-16.0) g/dL Hct 40.8 (37-47) % MCV 95.3 (80-100) fL MCH 32.7 (25-34) pg MCHC 34.3 (32-36) g/dL RDW Std Deviation 44.5 (36.4-46.3) fL RDW Coeff of Arielle 12.8 (11.5-14.5) % Plt Count 265 (130-400) K/uL MPV 9.7 (7.4-10.4) fL Immature Gran % (Auto) 0.3 % Neut % (Auto) 44.3 % Lymph % (Auto) 43.3 % [place] % (Auto) 9.8 % Eos % (Auto) 1.9 % Baso % (Auto) 0.4 % Immature Gran # (Auto) 0.02 (0.00-0.02) K/uL Neut # (Auto) 3.45 (1.4-6.5) K/uL Lymph # (Auto) 3.37 (1.2-3.4) K/uL [place] # (Auto) 0.76 H (0.11-0.59) K/uL Eos # (Auto) 0.15 (0-0.5) K/uL Baso # (Auto) 0.03 (0-0.2) K/uL PT (9.0-12.0) Seconds INR (0.9-1.1) Sodium 138 (136-145) mmol/L Potassium 4.4 (3.5-5.1) mmol/L Chloride 107 (98-107) mmol/L Carbon Dioxide 28 (21-32) mmol/L Anion Gap 3.0 (3-11) BUN 17 (7-18) mg/dl Creatinine 1.05 (0.6-1.2) mg/dl Est Cr Clr Drug Dosing 79.7 ml/min Est GFR ( Amer) 72.7 Est GFR (Non-Af Amer) 62.8 BUN/Creatinine Ratio 16.4 (10-20) Glucose 85 (70-99) mg/dl Calcium 8.9 (8.5-10.1) mg/dl Total Bilirubin 0.5 (0.2-1) mg/dl AST 25 (15-37) U/L ALT 29 (12-78) U/L Alkaline Phosphatase 59 (45-117) U/L Troponin I < 0.015 < 0.015 (0-0.045) ng/ml Total Protein 7.7 (6.4-8.2) gm/dl Albumin 3.7 (3.4-5.0) gm/dl Globulin 4.0 (2.5-4.0) gm/dl Albumin/Globulin Ratio 0.9 (0.9-2) Lipase 113 (73-393) U/L 06/28/18 06/28/18 Range/Units 10:55 18:52 WBC (4.8-10.8) K/uL RBC (4.2-5.4) M/uL Hgb (12.0-16.0) g/dL Hct (37-47) % MCV (80-100) fL MCH (25-34) pg MCHC (32-36) g/dL RDW Std Deviation (36.4-46.3) fL RDW Coeff of Arielle (11.5-14.5) % Plt Count (130-400) K/uL MPV (7.4-10.4) fL Immature Gran % (Auto) % Neut % (Auto) % Lymph % (Auto) % [place] % (Auto) % Eos % (Auto) % Baso % (Auto) % Immature Gran # (Auto) (0.00-0.02) K/uL Neut # (Auto) (1.4-6.5) K/uL Lymph # (Auto) (1.2-3.4) K/uL [place] # (Auto) (0.11-0.59) K/uL Eos # (Auto) (0-0.5) K/uL Baso # (Auto) (0-0.2) K/uL PT 10.9 (9.0-12.0) Seconds INR 1.1 (0.9-1.1) Sodium (136-145) mmol/L Potassium (3.5-5.1) mmol/L Chloride (98-107) mmol/L Carbon Dioxide (21-32) mmol/L Anion Gap (3-11) BUN (7-18) mg/dl Creatinine (0.6-1.2) mg/dl Est Cr Clr Drug Dosing ml/min Est GFR ( Amer) Est GFR (Non-Af Amer) BUN/Creatinine Ratio (10-20) Glucose (70-99) mg/dl Calcium (8.5-10.1) mg/dl Total Bilirubin (0.2-1) mg/dl AST (15-37) U/L ALT (12-78) U/L Alkaline Phosphatase (45-117) U/L Troponin I < 0.015 (0-0.045) ng/ml Total Protein (6.4-8.2) gm/dl Albumin (3.4-5.0) gm/dl Globulin (2.5-4.0) gm/dl Albumin/Globulin Ratio (0.9-2) Lipase (73-393) U/L Imaging Data Radiologist's Impression: XR chest 1V portable HISTORY: 48 years-old Female Chest Pain acute atypical chest pain COMPARISON: Chest radiograph 05/06/2016 TECHNIQUE: Portable AP view of the chest FINDINGS: Cardiomediastinal and hilar silhouettes are within normal limits. There is no pneumothorax, pleural effusion, focal airspace consolidation or overt pulmonary edema. Degenerative changes of the shoulders. Bones of the chest appear grossly intact. IMPRESSION: No acute process. The above report was generated using voice recognition software. It may contain grammatical, syntax or spelling errors. Electronically signed by: Ranjit Proctor M.D. 06/28/2018 6:12 AM ECG Data Attestation: I personally reviewed and interpreted this ECG as follows: Indication: chest pain Rate (beats per minute): 79 Rhythm: normal sinus Findings: no acute ischemic change and no ectopy Blood Pressure Blood Pressure Findings: Elevated blood pressure Blood Pressure Disposition: elevated BP felt to be situational MDM Narrative The patient is a 48 year old female who presents to the ED for chest pain. Differential diagnosis includes acute coronary syndrome, GERD, medication side effects, and aortic dissection. The patient awoke from sleep with significant chest pressure and heaviness along with nausea and shortness of breath. The patient has a very strong family history of heart disease. The patient's mother at age 53 suddenly from an acute NM. The patient has undergone cardiac stress testing but this was done approximately 3 years ago. At this time, the patient has a normal-appearing EKG and a negative troponin. However I remain concerned about her persistent discomfort in conjunction with her family history. I discussed the case with the [facility] Hospitalist group and they will evaluate for further management. Impression & Plan Substernal chest pain Discharge Plan Visit Data *Final* Discharge Date/Time: 06/28/18 09:28 Chief Complaint: Chest Pain Stated Complaint: chest pain ED Provider: Valery Melara Discharge Problem: Substernal chest pain Patient Disposition: Admitted As Inpatient Discharge Instructions Interventions: ED Discharge Assessment Last Done: 06/28/18 09:28 The caitlinibe's documentation has been prepared under my direction and personally reviewed by me in its entirety. I confirm that the note above accurately reflects all work, treatment, procedures, and medical decision making performed by me.
[2018-06-28] MEDS ORDERED: NON-FORMULARY MEDICATION (Biotin 1,000 MCG) PO SCH (10:13)
[2018-06-28] MEDS ORDERED: MoRPHine SULFATE 2 MG/ML CARP IV PRN (10:13)
[2018-06-28] MEDS ORDERED: NITROGLYCERIN SL 0.4 MG/TAB TAB SL PRN (10:13)
[2018-06-28] MEDS ORDERED: ONDANSETRON INJ 2 MG/ML 2 ML VIAL IV PRN (10:13)
[2018-06-28] MEDS ORDERED: NON-FORMULARY MEDICATION (Coq10 (Ubiquinol) 100 MG) PO SCH (10:13)
[2018-06-28 11:15] LABS: INR 1.1 (0.9-1.1); Prothrombin Time 10.9 Seconds (9.0-12.0)
[2018-06-28] MEDS: LOSARTAN POTASSIUM 50 MG TAB PO SCH (12:20)
[2018-06-28] MEDS: NORETHINDRONE 5 MG TAB PO SCH (12:20)
[2018-06-28] MEDS: OXYBUTYNIN CHLORIDE XL 5 MG TABCR PO SCH (12:20)
[2018-06-28] MEDS: MAGNESIUM OXIDE 400 MG TAB PO SCH (12:21)
[2018-06-28] MEDS: CHOLECALCIFEROL 1,000 UNITS TAB PO SCH (12:22)
[2018-06-28] MEDS: PANTOprazole 40 MG TAB PO SCH (12:22)
[2018-06-28] MEDS: ACETAMINOPHEN 325 MG TAB PO PRN (12:26)
[2018-06-28] MEDS: ENOXAPARIN INJ 40 MG/0.4 ML SYR SQ SCH (13:37)
[2018-06-28] MEDS ORDERED: OPTIRAY 320 125ml IV PRN (18:36)
--- NOTE | 2018-06-28 18:57 | CT Scan Report ---
CT angio chest dissec wo/w con HISTORY: 48 years-old Female chest pain/ ruling out aortic dissection acute sharp chest pain with co ncern for aortic dissection COMPARISON: CTA chest 01/30/2016 TECHNIQUE: CTA of the chest was obtained both with and without the use of 119 mL Optiray 320 IV contr ast. 3-D coronal and sagittal MIPS were obtained from the axial data set and were submitted for revie w. All measurements were obtained according to NASCET criteria. A dose lowering technique was used co nsistent with the principals júnior VEGA. FINDINGS: CTA: The noncontrast scan demonstrates no intramural hematoma or coronary arterial calcifications. The hea rt is normal in size. No pericardial effusion. The thoracic aorta is normal in both course and calibe r without dissection. There is a 4 mm saccular outpouching noted about the medial aspect of the aorti c isthmus on image 128 series 7 which in retrospect appears unchanged. No large thoracic aortic aneur ysm. There is patency of the imaged great vessels. The pulmonary arterial tree is opacified to level the subsegmental branches and demonstrates no focal filling defects to suggest pulmonary thromboembol ic disease. CT CHEST: Heterogeneously enlarged thyroid. No adenopathy by CT size criteria. There is no pneumothorax or pleural effusion. Dependent right basilar groundglass and linear consolid ative opacities suggest atelectasis with areas of mosaic attenuation suggestive of air trapping. Mild bilateral bronchial wall thickening. There are no suspicious pulmonary nodules or masses identified. Central airways appear patent. No acute process of the imaged upper abdomen. Cholecystectomy with likely postoperative biliary ducta l dilation. Breast parenchyma and soft tissues appear unremarkable. Bones appear to be intact. Remote postoperative changes of the distal left clavicle. IMPRESSION: 1. No thoracic aortic dissection or large aneurysm. There is a 4 mm saccular outpouching redemonstrat ed along the medial aspect of the aortic isthmus which is unchanged from 2016. 2. No evidence of pulmonary thromboembolic disease. 3. Mild bilateral bronchial wall thickening suggests bronchitis or reactive airway disease. 4. Bibasilar opacities suggest atelectasis with areas of mosaic attenuation suggestive of air trappin g. 5. Cholecystectomy. The above report was generated using voice recognition software. It may contain grammatical, syntax o r spelling errors. Electronically signed by: Ranjit Proctor M.D. 06/28/2018 6:56 PM
--- NOTE | 2018-06-28 21:19 | Consultation Report ---
DATE OF CONSULTATION: 06/28/2018 REQUESTING: Katlin Stafford MD HEAD TRIMMER: Chandu Irene D.O., [facility]. REASON FOR CONSULTATION: Chest discomfort. Dear Dr. Stafford: It was a pleasure to see Ata Dumont today in consultation with regards to her chest discomfort that awoke her from sleep. She notes in the middle of the night she woke up, she had what she describes as pressure and heaviness in the lower portion of her chest, there was no radiation to her neck, jaw, back or arm. She got up, she did not quite feel well. She went to the bathroom and sat on the toilet and while sitting there, she started to have some tunnel vision and felt lightheaded and dizzy. She laid down on the floor. She was a little nauseous. She was very sweaty at that point and sounding like she had to vasovagal episode. In the days leading up to today's admission, she has been doing well. She notes she exercises every morning 45 minutes on a StairMaster and denies any chest pain or chest pressure with that. She has noted some right arm discomfort which she describes more as pins and needles in her right arm with exercise. She walked 18,000 steps last weekend and pulled her golf bag while golfing and had no difficulty with that. She denies any further lightheadedness or dizziness. She did get nitroglycerin before the Emergency Room with a mild improvement in her symptoms. Her pain currently is 6/10. It is not worse with a deep breath. It is not worse lying flat or better sitting up. She denies any recent fevers or chills or upper respiratory tract infection, although she did have an episode of URI 3 weeks ago. She has chronic mild lower extremity edema, worse at the end of the day, better in the morning. She notes occasional rare palpitations but denies any extended episodes of her heart racing. Her appetite is stable. Her weight is stable. She denies any bleeding, bruising, dark stools, black stools, fevers, chills, or sweats. Rest of the review of system is otherwise negative. PAST MEDICAL HISTORY: 1. Hypertension. 2. Epilepsy. 3. 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 5. Hyperlipidemia. 6. Bladder spasm, recently started on oxybutynin on . SOCIAL HISTORY: She denies any alcohol or tobacco. 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 FAMILY HISTORY: Mom at 53 of a heart attack. She has a twin sister who had a heart attack at age of 40 who is still living. She has an older sister with hypertension and a father with hypertension. ALLERGIES: CEPHALEXIN, CLINDAMYCIN, ASPIRIN, PENICILLIN, ASPARTAME, ____ CIPRO, DILANTIN, SACCHARIN AND SULFA. PHYSICAL EXAMINATION: GENERAL: She is awake, alert, oriented x3. She is in no acute distress. She looks her stated age. VITAL SIGNS: Her heart rate 61, blood pressure 130/83, respirations 16, sat 97%. HEENT: 2+ carotid upstrokes. Normal carotid bruits. Jugular venous pressure appeared normal. Sclerae are anicteric. Her hearing is normal. LUNGS: Clear to auscultation bilaterally. No rales, rhonchi or wheezing. HEART: Regular rate and rhythm. No appreciable murmurs, rubs or gallops. ABDOMEN: Soft, nontender, nondistended. Positive bowel sounds. EXTREMITIES: No clubbing, cyanosis. She has trace to mild bilateral lower extremity edema. PSYCHIATRIC: Affect appeared appropriate. NEUROLOGIC: She is awake, alert and oriented x3. DIAGNOSTIC STUDIES: EKG, sinus rhythm with sinus arrhythmia, right-sided IVCD. Normal ECG. Troponins are negative x3. The rest of her laboratory studies are negative. Her chest x-ray was normal. IMPRESSIONS: 1. Chest discomfort with a normal EKG, negative troponins and a normal echocardiogram without evidence of regional wall motion abnormalities and normal biventricular size and function. 2. Hypertension, well controlled. 3. Recent use of oxybutynin. As I discussed, this does not sound like pericarditis. It does not sound like she had a pulmonary embolism. It is not worse with a deep breath. It is not worse lying flat. There is no evidence of pericardial effusion. There is nothing to suggest aortic dissection as she denies a ripping or tearing discomfort. The only oddity is in the right arm and hand symptoms, although if you look up oxybutynin it potentially can cause this and given her previous significant intolerances, I wonder if the oxybutynin is not causing her symptoms. I would repeat her next troponin in the next couple of hours. If it is negative, it is reassuring that this is not an acute coronary syndrome. At that point options are stop her oxybutynin and see if her symptoms improve. It does not sound like reflux disease either. If her symptoms do not improve as an outpatient then I would recommend stress testing. She did have a stress echo in 2017 in our office and there was no evidence of ischemia at a heart rate of 78% of maximum predicted for her age. This will be discussed with the hospitalist service. Thank you for allowing us to participate in her care.
[2018-06-29 06:48] LABS: Albumin Level 3.2 gm/dl (3.4-5.0); BUN Creatinine Ratio 17.5 (10-20); Calcium 8.5 mg/dl (8.5-10.1); Creatinine Clr Calc Pharmacy 99.9 ml/min; Est GFR (African American) 96.6; Est GFR (Non-African American) 83.4; Potassium 4.1 mmol/L (3.5-5.1)
[2018-06-29 06:51] LABS: Albumin Globulin Ratio 0.8 (0.9-2); Bilirubin,Total 0.6 mg/dl (0.2-1); Globulin 3.9 gm/dl (2.5-4.0); Total Protein 7.1 gm/dl (6.4-8.2)
[2018-06-29 06:53] LABS: Chol HDL Ratio 2; Cholesterol 141 mg/dl (0-200); HDL Cholesterol 58 mg/dl; LDL Cholesterol Direct 75 mg/dl; Triglycerides 77 mg/dl (0-150)
[2018-06-29 07:03] LABS: Estimated Average Glucose 103 mg/dl; Hemoglobin A1C 5.2 % (4.5-5.6)
[2018-06-29] MEDS: OXYBUTYNIN CHLORIDE XL 5 MG TABCR PO SCH (08:52)
[2018-06-29] MEDS: ACETAMINOPHEN 325 MG TAB PO PRN (08:52)
[2018-06-29] MEDS: MAGNESIUM OXIDE 400 MG TAB PO SCH (08:53)
[2018-06-29] MEDS: PANTOprazole 40 MG TAB PO SCH (08:53)
[2018-06-29] MEDS: LOSARTAN POTASSIUM 50 MG TAB PO SCH (08:53)
[2018-06-29] MEDS: CHOLECALCIFEROL 1,000 UNITS TAB PO SCH (08:53)
[2018-06-29] MEDS: NORETHINDRONE 5 MG TAB PO SCH (08:53)
[2018-06-29] MEDS: ENOXAPARIN INJ 40 MG/0.4 ML SYR SQ SCH (12:06)
--- NOTE | 2018-06-29 15:55 | Discharge Summary ---
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 The patient noticed that she was extremely nauseous along with the pain and proceeded to go to the bathroom however could not vomit. She felt short of breath and was slightly dizzy at this point in time. She reports the pain has been continuous, not waxing & waning and feels heavy. Yesterday she was golfing however this is not out of the normal for her. She denies ever experiencing this type of chest pain before. Patient also notes that she recently started new medication of oxybutynin last for bladder spasms. FHX: The patient has strong family history for heart disease: Patient's mother at age 53 of a massive heart attack 15 years ago, twin sister had heart attack at age 40, older sister with history of HTN, father with history of HTN. SHx: Patient does not smoke nor drink alcohol. Principal Diagnosis Chest pain; likely musculoskeletal Discharge Exam Constitutional WD/WN, vitals as above Eyes EOM intact bilaterally; no conjunctival abnormality ENMT external ear and nose normal, oropharynx normal Neck trachea midline, no thyromegaly normal visual inspection Respiratory normal respiratory effort, lungs clear to auscultation no respiratory distress Cardiovascular RRR, no murmur, no edema Gastrointestinal (Abdomen) Inspection/Auscultation: abdomen normal to inspection; abdomen not distended Musculoskeletal no cyanosis or clubbing, extremities motor strength 5/5 Skin no rashes, warm and dry Neurologic moves all extremities and awake Psychiatric Orientation: alert, oriented to person and cooperative Discharge Data Allergies Allergy/AdvReac Type Severity Reaction Status Date / Time cephalexin Allergy Severe throat Verified 06/28/18 05:13 swelling clindamycin Allergy Severe throat Verified 06/28/18 05:13 swelled shut aspirin Allergy Mild HIVES Verified 06/28/18 05:13 Penicillins Allergy Mild hives Verified 06/28/18 05:13 aspartame Allergy Unknown HIVES Verified 06/28/18 05:13 carbamazepine Allergy Unknown NONE Verified 06/28/18 05:13 Cipro Allergy Unknown . Verified 01/28/16 19:38 ciprofloxacin Allergy Unknown . Verified 06/28/18 05:13 phenytoin Allergy Unknown ? Verified 06/28/18 05:13 saccharin Allergy Unknown HIVES Verified 06/28/18 05:13 Sulfa (Sulfonamide Allergy Unknown RASH Verified 06/28/18 05:13 Antibiotics) Flu Virus Vaccine Allergy Unknown passed out Uncoded 01/28/16 19:38 for 3 hrs Consultations 06/28/18 07:34 ED Decision to Admit Stat 06/28/18 10:13 Consult Cardiology Routine Consult Case Management - Discharge Planning Routine Ordered Studies 06/28/18 17:43 CT angio chest dissec wo/w con Routine Hospital Course (1) Substernal chest pain: - Trended cardiac biomarkers which were all negative. - EKGs reviewed - no acute ischemia. - Echo showed no regional wall abnormalities; normal EF. - Seen by cardiology who felt this was not cardiac in nature. - Discharged with plan to stop oxybutynin, attempt ibuprofen, and consider outpatient stress test. (2) HTN (hypertension): - Cont antihypertensives including losartan 50 mg daily (3) Epilepsy: -History of such (4) Hx of completed stroke: -History of such in 1979 when age 10 and because 3 years of paralysis per patient report. -Patient does have a right-sided lip droop when attempting to smile which is a r esidual deficit, she is also deaf in the right ear and has a cochlear implant in place. (5) History of paralysis: -As above (6) HLD (hyperlipidemia): -Continue CoQ10 (7) Bladder spasm: -Patient was recently started on oxybutynin 10 mg daily last , has been taking this. Patient follows with [facility] as outpatient. - Will temporarily hold in case it is contributing. (8) DVT prophylaxis: -Teds, Lovenox subcu Total Time Total Time Spent Total Time Spent (In Minutes): 20 Total Time Includes: Examination of the Patient, Discharge Planning, Medication Reconciliation and Communication With Other Providers Discharge Plan Discharge Items Patient Disposition: Home - Self-Care Reason For Visit: chest pain Discharge Diagnosis: Chest pain, possible musculoskeletal rib pain (costochondritis) Discharge Goals: Decrease discomfort Activity: Resume your previous activity Non-emergency contact: Primary Care Provider and Press Reader Call non-emergency contact if: you have any medication questions, your symptoms worsen and your pain is not controlled Follow-up/Referrals: Jose Luis Fraga, DO [Primary Care Provider] - 07/03/18 10:50 am (Please, follow up at Dr. Fraga's office with his associate, Dr. Calles, on FridayJuly 03 at 10:50 am. *If you need to change this appointment, call their office at [phone].) Diet: Regular Addtl Provider Instructions: Ms. Li, You were admitted to the hospital with chest pain that wrapped around your left side as well as right and left arm heaviness and numbness. Your troponins and EKGs all were perfectly normal, and Dr. Irene (the certified phlebotomist) did not feel that a stress test was warranted. Please hold your oxybutynin for the next 3-4 days to see if this helps improve the chest pain. If this doesn't help, by Friday or , start taking ibuprofen 400 mg (usually 2 tablets) with breakfast and dinner to see if this is a musculoskeletal issue. Take this for 3-4 days to see if it improves your pain. If so, you probably do not need further testing. If your chest is still bother ing you, your PCP or Dr. Irene can order an outpatient stress test. Prescriptions: Continued albuterol sulfate 90 mcg/actuation Hfa Aerosol Inhaler 2 puff INHALATION QID PRN (Reason: Wheezing) RF: 0 losartan 50 mg Tablet 50 mg PO DAILY RF: 0 norethindrone acetate 5 mg Tablet 5 mg PO DAILY RF: 0 omeprazole 40 mg Capsule,Delayed Release(Dr/Ec) 40 mg PO DAILY RF: 0 nitrofurantoin monohyd/m-cryst 100 mg Capsule 100 mg PO BID RF: 0 eletriptan [Relpax] 40 mg Tablet 40 mg PO DAILY RF: 0 ibuprofen 800 mg Tablet 800 mg PO DIRECTED PRN (Reason: Pain) RF: 0 biotin 1,000 mcg Tablet,Chewable 1,000 mcg PO DAILY RF: 0 cholecalciferol (vitamin D3) [Vitamin D3] 5,000 unit Tablet 5,000 unit PO DAILY RF: 0 magnesium oxide 500 mg Capsule 500 mg PO DAILY RF: 0 coQ10 (ubiquinol) 100 mg Capsule 100 mg PO DIRECTED RF: 0 [place]-3 350 mg-235 mg- 90 mg-597 mg Capsule,Delayed Release(Dr/Ec) 1 cap PO DAILY RF: 0 cetirizine-pseudoephedrine [Zyrtec-D] 5-120 mg Tablet Extended Release 12 Hr 1 tab PO Q12H PRN (Reason: Allergy Symptoms) RF: 0 diclofenac sodium 1 % Gel 1 applic TOPICAL DIRECTED RF: 0 Discontinued oxybutynin chloride 10 mg Tablet Extended Release 24hr 10 mg PO DAILY RF: 0 Stand-Alone Forms: Call Back Authorization, [facility] Discharge Orders: Discharge Order (Routine); Ordered 06/29/18 Ordered By: Ponce Moore Admission Data Admit Date/Time: 06/28/18 08:24 Attending Provider: Ponce Moore Admit Provider: Ish Yuen Primary Care Provider: Jose Luis Fraga Other Providers: Ish Yuen ; Chandu Irene Service: Telemetry Other Interventions: Discharge Summary Assessment (RN) Last Done: 06/29/18 12:19 DC Date/Time DO NOT enter until pt leaves facility: 06/29/18 14:00
--- OUTSIDE RECORDS SUMMARY | 2018-06-29 22:42 | External Medical Summary | Continuity of Care Document ---
:1970 Author Name Camden John, Provider Address Unavailable Unavailable , Care Team Providers Name Role Phone Mauricio Eugene M.D. Unavailable [email or web address] Gen Christianson III, M.D. Unavailable [email or web address] Nayely HARRIS Unavailable [email or web address] Johanny PUTNAM Unavailable [email or web address] Laura HINES Unavailable Unavailable Unavailable Unavailable Unavailable Problems Urinary urgency (788.63) (R39.15) Urinary frequency (788.41) (R35.0) Convulsive disorder (780.39) (R56.9) UTI (urinary tract infection) (599.0) (N39.0) Dysuria (788.1) (R30.0) Cholecystitis, acute with cholelithiasis (574.00) (K80.00) Hypertension (401.9) (I10) Nausea with vomiting (787.01) (R11.2) Polydipsia (783.5) (R63.1) Nausea (787.02) (R11.0) Flank pain (789.09) (R10.9) Chronic cystitis (595.2) (N30.20) Fatigue (780.79) (R53.83) Microhematuria (599.72) (R31.29) Vasovagal syncope (780.2) (R55) Classic migraine with aura (346.00) (G43.109) Allergies and Adverse Reactions Aspirin TABS (Allergy) Reaction: Hives Clindamycin (Allergy) Reaction: Hives Dilantin CAPS (Allergy) Reaction: Hives Influenza Virus Vaccine Whole (Allergy) Penicillins (Allergy) Reaction: Hives Sulfa Drugs (Allergy) Reaction: Hives TEGretol TABS (Allergy) Reaction: Hives Medications Trospium Chloride ER 60 MG Oral Capsule Extended Release 24 Hour; TAKE 1 CAPSULE Daily STEVEN Adler Start: 23-Jun-2018 Quantity: 30 Refills: 2 methylPREDNISolone 4 MG Oral Tablet Refills: 0 Ibuprofen 800 MG Oral Tablet; TAKE 1 TABLET 3 TIMES DA MARII WITH FOOD NEEDED. Case, INDY [place] Start: 11-Dec-2010 Quantity: 90 Refills: 3 Omeprazole 40 MG Oral Capsule Delayed Release Refills: 0 Losartan Potassium 50 MG Oral Tablet; TAKE 1 TABLET DAILY DIRECTED. 30 Tablet Bottle Refills: 0 Eletriptan Hydrobromide 40 MG Oral Table t; TAKE 1 TABLET AT ONSET OF MIGRAINE. MAY REPEAT ONCE AFTER 2 HOURS. MAX 2 DOSES/24 HOURS. Case, INDY [place] Start: 12-Jan-2013 Quantity: 9 Refills: 5 Voltaren 1 % Transdermal Gel Refills: 0 Oxybutynin Chloride ER 10 MG Oral Tablet Extended Release 24 Hour; TAKE 1 TABLET DAILY. Dora Eugene Start: 23-Jun-2018 Quantity: 30 Refills: 1 Procedures History of Cholecystectomy Laparoscopic Status: Completed 29-Jan-2016 0:00 Immunizations Influenza Comments:DENIED 2014 Social History - Smoking Status Never smoker Plan of Treatment Planned Encounters Appointment; Gen Christianson III, M.D. Start: 09-Nov-2018 16:[address] Planned Observations Planned Goals not documented Results In-House UA (Urology) Laboratory: In House Comments: POLINA toney are (Pending) 23-Jun-2018 14:52 VOID, CC, CATH CC Turbid, Clear, Hazy Clear Gluc 0 Prot 0 Nitrate + (Abnormal) Leuk 0 Blood Trace (Abnormal) pH 6.0 MICROSCOPIC Many bacteria (Abnormal) Comp Metabolic Panel Laboratory: [facility] Laboratory [address] [facility] [id number] tel: 23-Jun-2018 14:08 SODIUM 140 mmol/L Range: 136-145 mmol /L POTASSIUM 3.9 mmol/L Range: 3.5-5.1 mmo l/L CHLORIDE 107 mmol/L Range: 98-107 mmol/ L CARBON DIOXIDE 26 mmol/L Range: 21-32 m mol/L ANION GAP 6.0 Range: 3-11 BLOOD UREA NITROGEN 15 mg/dl Range: 7-1 8 mg/dl CREATININE 0.90 mg/dl Range: 0.6-1.2 mg /dl Estimated GFR ( Comments: Units: ml/min per [place]) 87.6 1.73 meters squaredT he estimated GFR (CKD-E PI equation) has not be en validatedfor inpatie nt settings and may not be an accurate reflectiono f renal function in critical ly ill patients or those wi thrapidly changing renal funct ion (e.g. FALGUNI). Estimated GFR (Non- Comments: Uni ts: ml/min per [place]) 75.6 1.73 meters squaredT he estimated GFR (CKD-E PI equation) has not be en validatedfor inpatie nt settings and may not be an accurate reflectiono f renal function in critical ly ill patients or those wi thrapidly changing renal funct ion (e.g. FALGUNI). BUN/CREATININE RATIO 16.1 Range: 10-20 GLUCOSE 87 mg/dl Range: 70-99 mg/dl CALCIUM 9.1 mg/dl Range: 8.5-10.1 mg/ dl Bilirubin, Total 0.3 mg/dl Range: 0.2-1 mg/dl AST/SGOT 22 U/L Range: 15-37 U/L ALT/SGPT 35 U/L Range: 12-78 U/L TOTAL PROTEIN 7.3 {gm/dl} Range: 6.4-8. 2 gm/dl ALBUMIN 3.6 {gm/dl} Range: 3.4-5.0 gm/d l GLOBULIN 3.7 {gm/dl} Range: 2.5-4.0 gm/ dl ALB/GLOB RATIO 1.0 Range: 0.9-2 ALKALINE PHOSPHATASE 57 U/L Range: 45-1 17 U/L Magnesium Laboratory: [facility] [address] [facility] [address] tel: 23-Jun-2018 14:08 MAGNESIUM 2.1 mg/dl Range: 1.8-2.4 mg/d l Encounters Appointment; Mauricio Eugene M.D. 23-Jun-2018 14:30 Encounter Diagnosis: Problem not documented Appointment; Mauricio Eugene M.D. 27-May-2018 15:15 Encounter Diagnosis: Problem not documented Appointment; Gen Christianson III, M.D. 11-May-2018 16:00 Encounter Diagnosis: Problem not documented Appointment; Hansa Galindo PA-C 08-May-2017 11:30 Encounter Diagnosis: Problem not documented Appointment; Mauricio Eugene M.D. 08-May-2017 9:50 Encounter Diagnosis: Problem not documented Appointment; Gen Christianson III, M.D. 09-Nov-2018 16:00 Encounter Diagnosis: Problem not documented
== END 2018-06-29 14:00 | disposition home or self-care (01) ==
LOC: 2S 04:38 → ED 04:38 → SUATTDRO 08:24 → 2S 09:28

== ENCOUNTER 2023-07-13 04:18 | Observation (INO) ==
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
[2023-07-13] MEDS: FAMOTIDINE 20MG IV PUSH 20 MG/5 ML SYR IV STA (04:41)
[2023-07-13 04:48] LABS: Basophils # (auto) 0.04 K/uL (0.00-0.20); Basophils % (auto) 0.6 %; Eosinophils # (auto) 0.15 K/uL (0.00-0.50); Eosinophils % (auto) 2.2 %; Hematocrit (blood only) 37.3 % (37.0-47.0); Hemoglobin 12.5 g/dl (12.0-16.0); Immature Granulocytes # (auto) 0.02 K/uL (0.01-0.20); Immature Granulocytes % (auto) 0.3 %; Lymphocytes # (auto) 2.82 K/uL (1.20-3.40); Lymphocytes % (auto) 41.2 %; Mean Corpuscular Hemoglobin 31.2 pg (25.0-34.0); Mean Corpuscular Hgb Conc 33.5 g/dL (32.0-36.0); Mean Platelet Volume 9.3 fL (9.4-12.4); Monocytes # (auto) 0.44 K/uL (0.11-0.59); Monocytes % (auto) 6.4 %; Neutrophils # (auto) 3.37 K/uL (1.40-6.50); Neutrophils % (auto) 49.3 %; Platelet Count 254 K/uL (130-400); RDW Standard Deviation 41.2 fL (36.4-46.3); Red Blood Count 4.01 M/uL (4.20-5.40); White Blood Count 6.84 K/ul (4.8-10.8)
[2023-07-13 04:55] LABS: iSTAT Creatinine 0.9 mg/dl (0.6-1.3); iSTAT Hemoglobin 11.9 g/dl (12.0-16.0); iSTAT Ionized Calcium 1.25 mmol/l (1.12-1.32); iSTAT Potassium 3.8 mmol/L (3.3-5.0)
[2023-07-13 05:07] LABS: Albumin Globulin Ratio 1.3 (0.9-2); BUN Creatinine Ratio 19.8 (10-20); Bilirubin,Total 0.5 mg/dl (0.2-1.0); Calcium 9.5 mg/dl (8.6-10.3); Creatinine Clr Calc Pharmacy 93.1 ml/min; Est GFR (African American) 96.1 ml/min; Est GFR (Non-African American) 82.9 ml/min; Globulin 3.1 gm/dl (2.5-4.0); Potassium 4.1 mmol/L (3.5-5.1); Total Protein 7.1 gm/dl (6.0-8.3)
[2023-07-13] MEDS: OPTIRAY 320 125ml IV ONE (05:11)
[2023-07-13 05:14] LABS: Troponin I High Sensitivity 2.5 pg/ml (0-14)
--- NOTE | 2023-07-13 05:25 | CT Scan Report ---
Exam(s): CTA CHEST IV Amt: 120 ml opti 320 EXAM: CT Angiography Chest With Intravenous Contrast CLINICAL HISTORY: Reason for exam: PE. TECHNIQUE: Axial computed tomographic angiography images of the chest with intravenous contrast. Automated exposure control was utilized for the study. A dose lowering technique was utilized adhering to the principles of ALARA. MIP reconstructed images were created and reviewed. COMPARISON: No relevant prior studies available. FINDINGS: Pulmonary arteries: No pulmonary embolism identified. Aorta: No acute findings. No thoracic aortic aneurysm. Lungs: Unremarkable. No mass. No consolidation. Pleural space: Unremarkable. No significant effusion. No pneumothorax. Heart: Unremarkable. No cardiomegaly. No significant pericardial effusion. No evidence of RV dysfunction. Mediastinum: Diffuse esophageal thickening. Findings may be inflammatory nature. Thyroid: Left thyroid nodule measuring 1.3 cm in maximum dimension. No follow-up is necessary. Right thyroid nodule measuring 1.6 cm in maximum dimension. Bones/joints: Degenerative changes in the spine. No acute fracture. No dislocation. Soft tissues: Unremarkable. Lymph nodes: Unremarkable. No enlarged lymph nodes. Gallbladder and bile ducts: Cholecystectomy changes. Other findings: Mild dependent atelectatic changes. IMPRESSION: 1. No pulmonary embolism identified. 2. Diffuse esophageal thickening. Findings may be inflammatory nature. 3. Right thyroid nodule measuring 1.6 cm in maximum dimension. Recommend further evaluation with thyroid ultrasound. Electronically signed by: Juarez Diaz MD 07/13/23 05:24 AM
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
--- NOTE | 2023-07-13 07:20 | Electrocardiogram Report ---
Test Reason : Blood Pressure : / mmHG Vent. Rate : 084 BPM Atrial Rate : 084 BPM P-R Int : 192 ms QRS Dur : 076 ms QT Int : 382 ms P-R-T Axes : 064 073 053 degrees QTc Int : 451 ms Sinus rhythm When compared with ECG of 20-SEP-2022 00:46, Nonspecific T wave abnormality now evident in Lateral leads Confirmed by Sunil Campbell ([id number]) on 07/13/2023 7:19:34 AM Referred By: REFERRED SELF Confirmed By:Rsihi Campbell
[2023-07-13 07:25] LABS: Chol HDL Ratio 2.2 (0-5)
--- NOTE | 2023-07-13 08:09 | XRay Report ---
XR chest 1V portable CLINICAL HISTORY: Chest pain, nonspecific TECHNIQUE: Single frontal radiograph of the chest was obtained. Comparison: Comparison is made to chest radiograph 09/19/2022 FINDINGS: No lines and tubes are seen. The cardiomediastinal silhouette is normal. The lungs are clear. No evid ence of pleural effusion or pneumothorax. IMPRESSION: No acute chest disease. ACT 112: Negative or not required by law. Electronically signed by: Ankit Colón M.D. 07/13/2023 8:08 AM
--- NOTE | 2023-07-13 10:25 | XCELERA ---
[id number]
[2023-07-13] MEDS ORDERED: CARBOHYDRATES FOR HYPOGLYCEMIA PO PRN (10:31)
[2023-07-13] MEDS ORDERED: ONDANSETRON INJ 2 MG/ML 2 ML VIAL IV PRN (10:31)
[2023-07-13] MEDS ORDERED: ACETAMINOPHEN 325 MG TAB PO PRN (10:31)
[2023-07-13] MEDS ORDERED: GLUCAGON FOR INJ 1 MG VIAL SQ PRN (10:31)
[2023-07-13] MEDS ORDERED: DEXTROSE 50% 50 ML SYRINGE IV PRN (10:31)
[2023-07-13] MEDS ORDERED: GLUCOSE 40% GEL 15 GM TUBE PO PRN (10:31)
[2023-07-13] MEDS ORDERED: GLUCOSE 10 TAB/TUBE PO PRN (10:31)
[2023-07-13] MEDS: INSULIN ASPART PER UNIT CHARGE SC SCH (11:15)
[2023-07-13] MEDS: GABAPENTIN 300 MG CAP PO SCH (11:21)
[2023-07-13] MEDS: CETIRIZINE HCL 10 MG TABLET PO SCH (11:21)
[2023-07-13] MEDS: LOSARTAN POTASSIUM 50 MG TAB PO SCH (11:21)
[2023-07-13] MEDS: PANTOprazole 40 MG TAB PO SCH (11:22)
--- NOTE | 2023-07-13 14:38 | Discharge Summary ---
Discharge Summary Date of Service July 13, 2023 Notes For Next Care Provider substernal chest pain that resolved basically spontaneously, further improved with pepcid. negative trop x3, normal echo. Increased PPI to BID, recmmend outpatient GI follow up. hgba1c pending at discharge Medication Changes From Visit PPI increased to BID Admission HPI Per Admitting Provider The patient is a 53-year-old female with a past medical history including brachial plexopathy, morbid obesity, substernal chest pain, hyperlipidemia, classic migraine with aura cystitis, bladder spasm, history of CVA, hypertension family history of premature coronary disease. The patient presents to the emergency department after being woken up from sleep about 3:30 this morning with severe substernal chest pain and shortness of breath. She has history of negative stress echocardiogram 06/13/2020. She reports that her mother of a heart attack at age 54, and her twin sister survived a heart attack at age 40. Principal Dx & Hospital Course #1 = Principal Diagnosis (1) Substernal chest pain: (2) Esophageal thickening: (3) Family history of premature CAD: (4) Morbid obesity: (5) HLD (hyperlipidemia): (6) Hx of completed stroke: (7) HTN (hypertension): (8) Classic migraine with aura: Plan Substernal Chest pain/shortness of breath/hypertension- Trop negative x3 Echo: EF 60-65, grade 1 diastolic dysfunction, normal left ventricular wall motion. Risk factors include strong family history, diabetes mellitus, hypertension, morbid obesity The patient reports that she cannot take aspirin, as it causes hives, however, she is able to take ibuprofen, but she does not take regularly awoke from her sleep after eating tomato soup for dinner. Symptoms greatly improved prior to arrival to hospital without intervention, symptoms ceased after administration of pepcid. Suspect GI source - patient follows with [facility] and will need outpatient follow up. No urgent inpatient intervention as symptoms have resolved. - increase PPI to BID With family hx - could consider outpatient stress, will defer to PCP Diabetes mellitus- Resume semaglutide at discharge Hgba1c: pending Hyperlipidemia- Not on medications at this time lipid panel WNL Diffuse esophageal thickening/GERD- PPI increased to BID as ricki recommend outpatient GI follow up suspect cause of patient symptoms Discharge Exam General: NAD, VS as above Resp: normal respiratory effort, lungs clear to auscultation CV: RRR, no murmur, Abd: normal bowel sounds, soft non tender, no hepatosplenomegaly Extremities: Moves all extremities, no edema Updated Medication List Medication Instructions Recorded Confirmed Type losartan 50 mg tablet 50 mg PO QAM 06/28/18 07/13/23 History hydrochlorothiazide 25 mg tablet 25 mg PO QAM 09/23/20 07/13/23 History acetaminophen 500 mg tablet 500 mg PO QID PRN Pain 10/06/20 07/13/23 History (Tylenol Extra Strength) eletriptan 40 mg tablet (Relpax) 40 mg PO .COMPLEX 30 days #9 tabs 08/26/22 07/13/23 Rx fremanezumab-vfrm 225 mg/1.5 mL 225 mg (1.5 mL) subcut .COMPLEX 90 04/08/23 07/13/23 Rx subcutaneous syringe (Ajovy days #4.5 mL Syringe) cetirizine 10 mg tablet 10 mg PO DAILY 06/04/23 07/13/23 History epinephrine 0.3 mg/0.3 mL 0.3 mg IM USEASDIRECTD PRN 06/04/23 07/13/23 History injection, auto-injector Anaphylaxis gabapentin 300 mg capsule 300 mg PO QAM 06/04/23 07/13/23 History ibuprofen 800 mg tablet (IBU) 800 mg PO TID PRN Pain 06/04/23 07/13/23 History semaglutide 2 mg/dose (8 mg/3 mL) 2 mg subcut WK 06/04/23 07/13/23 History subcutaneous pen injector (Ozempic) sennosides 8.6 mg-docusate sodium 2 cap PO QAM 06/04/23 07/13/23 History 50 mg capsule (Senna Plus) omeprazole 40 mg capsule,delayed 40 mg PO BID 30 days #60 caps 07/13/23 Rx release Hospital Stay Data Consultations 07/13/23 05:21 ED Decision to Admit Stat Diagnostic Imagining Performed Chest X-Ray 07/13/23 04:22 XR chest 1V portable CLINICAL HISTORY: Chest pain, nonspecific TECHNIQUE: Single frontal radiograph of the chest was obtained. Comparison: Comparison is made to chest radiograph 09/19/2022 FINDINGS: No lines and tubes are seen. The cardiomediastinal silhouette is normal. The lungs are clear. No evidence of pleural effusion or pneumothorax. IMPRESSION: No acute chest disease. ACT 112: Negative or not required by law. Electronically signed by: Ankit Colón M.D. 07/13/2023 8:08 AM Chest CTA 07/13/23 04:28 Exam(s): CTA CHEST IV Amt: 120 ml opti 320 EXAM: CT Angiography Chest With Intravenous Contrast CLINICAL HISTORY: Reason for exam: PE. TECHNIQUE: Axial computed tomographic angiography images of the chest with intravenous contrast. Automated exposure control was utilized for the study. A dose lowering technique was utilized adhering to the principles of ALARA. MIP reconstructed images were created and reviewed. COMPARISON: No relevant prior studies available. FINDINGS: Pulmonary arteries: No pulmonary embolism identified. Aorta: No acute findings. No thoracic aortic aneurysm. Lungs: Unremarkable. No mass. No consolidation. Pleural space: Unremarkable. No significant effusion. No pneumothorax. Heart: Unremarkable. No cardiomegaly. No significant pericardial effusion. No evidence of RV dysfunction. Mediastinum: Diffuse esophageal thickening. Findings may be inflammatory nature. Thyroid: Left thyroid nodule measuring 1.3 cm in maximum dimension. No follow-up is necessary. Right thyroid nodule measuring 1.6 cm in maximum dimension. Bones/joints: Degenerative changes in the spine. No acute fracture. No dislocation. Soft tissues: Unremarkable. Lymph nodes: Unremarkable. No enlarged lymph nodes. Gallbladder and bile ducts: Cholecystectomy changes. Other findings: Mild dependent atelectatic changes. IMPRESSION: 1. No pulmonary embolism identified. 2. Diffuse esophageal thickening. Findings may be inflammatory nature. 3. Right thyroid nodule measuring 1.6 cm in maximum dimension. Recommend further evaluation with thyroid ultrasound. Electronically signed by: Juarez Diaz MD 07/13/23 05:24 AM Pending Results Patient Have Any Pending Studies at Discharge: Yes (hgba1c) Discharge Instructions Given to Patient (Per Discharging Provider) Mrs. Penny You were hospitalized after an episode of chest pain. Luckily this was not cardiac in nature - all three of your troponin test were negative. Your echo did not show any major abnormalities. Given your family history you could consider an outpatient stress test, you can discuss this with your PCP. Your CT scan showed diffuse thickening of your esophagus - which likely is related to your GERD. I suspect this was the cause of your symptoms. You should follow up with your GI doctor within the next month too see if repeat endoscopy is necessary. In the interim, I would recommend increasing your omeprazole to twice a day. The CT scan also showed thyroid nodules that you should continue following with your PCP. We checked a HgA1c that will result on Friday - you can check the portal or contact your PCP for results. ----- Take your medications as instructed; do not skip a dose of your medicines. Make sure all of your doctors know every medicine you are taking (including o [id number] medicines, vitamins, and supplements). Call your primary care provider before taking any new medicines (including over- the-counter medicines, vitamins, and supplements), because some of these may interact with your current medications, or may make your symptoms worse. Tell your primary care provider if you cannot afford your medications. Activity: You can do normal everyday activities as your body allows. Take rest breaks if you feel tired. Do not overexert. Stop activity if you have pain, shortness of breath or feel dizzy. Follow-up appointments: Make an appointment with your primary care physician within one week of discharge. A copy of this summary will be sent to them. Every time you see your primary care physician, or any other doctor, bring your medication list, and a list of questions. CONTACT YOUR PRIMARY CARE PROVIDER if you experience any of the following: Shortness of breath or difficulty breathing Fevers or chills Feeling tired with normal activity or experiencing dizziness or fainting Difficulty following your treatment plan, or difficulty taking medications CALL 911 OR GO TO THE EMERGENCY DEPARTMENT if you experience any of the following: Severe abdominal pain or nausea/vomiting Severe chest pain, or chest pain that radiates (moves) to your jaw or arm Sudden, severe shortness of breath or difficulty breathing Thank you for allowing us to participate in your care. Total Time Total Time Spent Total Time Spent (In Minutes): Time spend day of discharge 50 minutes including direct patient care, medication reconciliation, documentation, review of labs and images, and coordination of care. Coding Level of Care Code INP/OBS EV SAME DAY LV 3,85MIN Diagnoses Substernal chest pain R07.2 Esophageal thickening K22.89 Family history of premature CAD Z82.49 Morbid obesity E66.01 HLD (hyperlipidemia) E78.5 Hx of completed stroke Z86.73 HTN (hypertension) I10 Classic migraine with aura G43.109
[2023-07-14 07:29] LABS: Estimated Average Glucose 105 mg/dl; Hemoglobin A1C 5.3 % (4.5-5.6)
--- NOTE | 2023-07-14 15:08 | Electrocardiogram Report ---
Test Reason : Blood Pressure : / mmHG Vent. Rate : 084 BPM Atrial Rate : 084 BPM P-R Int : 178 ms QRS Dur : 092 ms QT Int : 382 ms P-R-T Axes : 061 072 056 degrees QTc Int : 451 ms Normal sinus rhythm Incomplete right bundle branch block Borderline ECG When compared with ECG of 13-JUL-2023 04:23, Previous ECG has undetermined rhythm, needs review Confirmed by Sunil Campbell ([id number]) on 07/14/2023 3:08:21 PM Referred By: Marlo Becerra Confirmed By:Rishi Campbell
== END 2023-07-13 17:55 | disposition home or self-care (01) ==
LOC: SUATTDRO → ED 04:18 → 2N 04:18